=== PATIENT | female | born 1985 | race American Indian/Alaskan Native ===

== ENCOUNTER 2019-11-28 13:13 | Emergency (ER) | payer MEDICAID ==
[2019-11-28] MEDS ORDERED: ASPIRIN 325 MG TAB PO ONE (14:23)
--- NOTE | 2019-11-28 14:25 | Event Note ---
ED Screening Note Date of service: 11/28/19 Time: 14:21 ED Screening Note: This is a 34-year-old female with no prior medical history presents the ED complaining of chest pain x2 hours ago She describes pain as tight in nature and localized to the medial. She describes a 10 on a 10 pain, ccrying in triage and holding chest Patient also has a history of anxiety disorder. mild ttp of chest This initial assessment/diagnostic orders/clinical plan/treatment(s) is/are subject to change based on patients health status, clinical progression and re- assessment by fellow clinical providers in the ED. Further treatment and workup at subsequent clinical providers discretion. Patient/guardian urged not to elope from the ED as their condition may be serious if not clinically assessed and managed. Initial orders include: Labs, chest x-ray, EKG
[2019-11-28 15:14] LABS: Basophils # (Auto) 0.1 K/mm3 (0.0-0.1); Basophils % (Auto) 0.6 % (0.0-1.8); Eosinophils % (Auto) 0.1 % (0.0-4.3); Hematocrit 43.4 % (30.3-42.9); Lymphocytes # (Auto) 3.3 K/mm3 (1.2-5.4); Lymphocytes % (Auto) 26.5 % (13.4-35.0); Mean Corpuscular HGB Conc 32 % (30-34); Mean Corpuscular Volume 85 fl (79-97); Monocytes # (Auto) 1.1 K/mm3 (0.0-0.8); Monocytes % (Auto) 8.8 % (0.0-7.3); Platelet Count 283 K/mm3 (140-440); Red Blood Count 5.09 M/mm3 (3.65-5.03); Red Cell Distribution Width 14.8 % (13.2-15.2)
[2019-11-28 15:25] LABS: BUN/Creatinine Ratio 10; Blood Urea Nitrogen 8 mg/dL (7-17); Hemolysis Index 13
--- NOTE | 2019-11-28 15:39 | XRay Report ---
CHEST 1 VIEW INDICATION: Chest Pain. COMPARISON: None FINDINGS: Support devices: None. Heart: Within normal limits. Lungs/Pleura: No acute air space or interstitial disease. Additional findings: None. IMPRESSION: No acute findings. Signer Name: Hieu Hanna Jr, MD Signed: 11/28/2019 3:35 PM Workstation Name: [id number]
[2019-11-28] MEDS ORDERED: KETOROLAC 60 MG/2 ML INJ IM ONE (15:44)
[2019-11-28] MEDS ORDERED: SODIUM CHLORIDE 0.9% 1000 ML 1,000 ML IV ONE ×2 (15:50→17:20)
[2019-11-28] MEDS ORDERED: POTASSIUM CHLORIDE ER 10 MEQ TAB PO ONE (15:50)
[2019-11-28] MEDS ORDERED: POTASSIUM CHLORIDE 10 MEQ 10 MEQ/100 ML BAG IV ONE (15:52)
[2019-11-28] MEDS ORDERED: POTASSIUM CHLORIDE ER 20 MEQ TAB PO ONE (15:52)
[2019-11-28] MEDS ORDERED: KETOROLAC 30 MG/1 ML INJ IV ONE (16:00)
[2019-11-28] MEDS ORDERED: KETOROLAC 30 MG/1 ML INJ ONE (16:03)
--- NOTE | 2019-11-28 17:41 | Emergency Department Report ---
ED Chest Pain HPI - General Chief Complaint: Chest Pain Stated Complaint: CHEST PAIN Time Seen by Provider: 11/28/19 15:25 Source: patient Mode of arrival: Ambulatory Limitations: No Limitations - History of Present Illness Initial Comments: This is a 34-year-old male nontoxic, well nourished in appearance, no acute signs of distress presents to the ED with c/o of midsternum chest pain. Patient denies any radiation of pain. Patient describes pain as aching and sharp intermittently. Aggravated with palpation and movement. Patient denies any upper respiratory symptoms. Patient denies any shortness of breath, hemoptysis, fever, chills, nausea, vomiting, headache, stiff neck, numbness, tingling, abdominal pain. Patient denies pleuritic chest pain. Patient denies any recent travels or long car rides. Patient denies any recent surgeries or any sick contacts. Patient denies any drug allergies. Denies any PMH. MD Complaint: chest pain -: This afternoon Pain Location: substernal Pain Radiation: none Severity: mild Severity scale (0 -10): 3 Quality: aching, sharp Consistency: intermittent Improves With: rest Worsens With: palpation, movement re: denies: nausea, vomting, diaphoresis, dyspnea, sense of impending doom Other Symptoms: denies: cough, fever, syncope, rash, acid taste in mouth, leg swelling, palpitations, burping Treatments Prior to Arrival: none Aspirin use within the Past 7 Days: (0) No - Related Data On Oral Contraceptives: No Previous Rx's Medication Instructions Recorded Last Taken Type Naproxen 500 mg PO Q8H PRN #12 tablet 11/28/19 Unknown Rx Allergies Allergy/AdvReac Type Severity Reaction Status Date / Time No Known Allergies Allergy Verified 11/28/19 14:23 Heart Score - HEART Score History: Slightly suspicious EKG: Normal Age: < 45 Risk factors: No known risk factors Troponin: < normal limit HEART Score: 0 ED Review of Systems ROS: Stated complaint: CHEST PAIN Other details as noted in HPI Constitutional: denies: chills, fever Eyes: denies: eye pain, eye discharge, vision change ENT: denies: ear pain, throat pain Respiratory: denies: cough, shortness of breath, wheezing Cardiovascular: chest pain. denies: palpitations Endocrine: no symptoms reported Gastrointestinal: denies: abdominal pain, nausea, diarrhea Genitourinary: denies: urgency, dysuria, discharge Musculoskeletal: denies: back pain, joint swelling, arthralgia Skin: denies: rash, lesions Neurological: denies: headache, weakness, paresthesias Psychiatric: denies: anxiety, depression Hematological/Lymphatic: denies: easy bleeding, easy bruising ED Past Medical Hx - Past Medical History Previous Medical History?: Yes Additional medical history: ovarian cyst. anxiety attacks - Surgical History Past Surgical History?: Yes Additional Surgical History: C section - Social History Smoking Status: Current Some Day Smoker Substance Use Type: Marijuana - Medications Home Medications: Home Medications Medication Instructions Recorded Confirmed Last Taken Type Naproxen 500 mg PO Q8H PRN #12 tablet 11/28/19 Unknown Rx ED Physical Exam - General Limitations: No Limitations General appearance: alert, in no apparent distress - Head Head exam: Present: atraumatic, normocephalic - Eye Eye exam: Present: normal appearance - Neck Neck exam: Present: normal inspection, full ROM. Absent: tenderness, meningismus, lymphadenopathy - Respiratory Respiratory exam: Present: normal lung sounds bilaterally, chest wall tenderness (Costochondritis). Absent: respiratory distress, wheezes, rales, rhonchi, stridor, accessory muscle use, decreased breath sounds, prolonged expiratory - Cardiovascular Cardiovascular Exam: Present: regular rate, normal rhythm, normal heart sounds. Absent: bradycardia, tachycardia, irregular rhythm, systolic murmur, diastolic murmur, rubs, gallop - GI/Abdominal GI/Abdominal exam: Present: soft, normal bowel sounds. Absent: distended, tenderness, guarding, rebound, rigid, diminished bowel sounds - Extremities Exam Extremities exam: Present: normal inspection, full ROM - Back Exam Back exam: Present: normal inspection, full ROM. Absent: tenderness, CVA tenderness (R), CVA tenderness (L), muscle spasm, paraspinal tenderness, vertebral tenderness, rash noted - Neurological Exam Neurological exam: Present: alert, oriented X3, normal gait - Psychiatric Psychiatric exam: Present: normal affect, normal mood - Skin Skin exam: Present: warm, dry, intact, normal color. Absent: rash ED Course Vital Signs 11/28/19 11/28/19 13:45 16:44 Temperature 98.9 F Pulse Rate 74 Respiratory 18 20 Rate Blood Pressure 113/87 O2 Sat by Pulse 97 Oximetry - Reevaluation(s) Reevaluation #1: 11/28/19 17:41 Patient is speaking in full sentences with no signs of distress noted. Reevaluation #2: 11/28/19 17:45 Patient has nausea after K+. Will order Zofran and reexamine with PO challenge. RAJINDER score - Rajinder Score Age > 65: (0) No Aspirin use within the Past 7 Days: (0) No 3 or more CAD Risk Factors: (0) No 2 or more Angina events in past 24 hrs: (0) No Known CAD with more than 50% Stenosis: (0) No Elevated Cardiac Markers: (0) No ST Deviation Greater than 0.5mm: (0) No RAJINDER Score: 0 ED Medical Decision Making - Lab Data Result diagrams: 11/28/19 14:45 11/28/19 14:45 Lab Results 11/28/19 11/28/19 11/28/19 Range/Units 14:45 14:45 14:45 WBC 12.3 H (4.5-11.0) K/mm3 RBC 5.09 H (3.65-5.03) M/mm3 Hgb 14.0 (10.1-14.3) gm/dl Hct 43.4 H (30.3-42.9) % MCV 85 (79-97) fl MCH 28 (28-32) pg MCHC 32 (30-34) % RDW 14.8 (13.2-15.2) % Plt Count 283 (140-440) K/mm3 Lymph % (Auto) 26.5 (13.4-35.0) % [place] % (Auto) 8.8 H (0.0-7.3) % Eos % (Auto) 0.1 (0.0-4.3) % Baso % (Auto) 0.6 (0.0-1.8) % Lymph # 3.3 (1.2-5.4) K/mm3 [place] # 1.1 H (0.0-0.8) K/mm3 Eos # 0.0 (0.0-0.4) K/mm3 Baso # 0.1 (0.0-0.1) K/mm3 Seg Neutrophils % 64.0 (40.0-70.0) % Seg Neutrophils # 7.9 H (1.8-7.7) K/mm3 Sodium 138 (137-145) mmol/L Potassium 3.2 L (3.6-5.0) mmol/L Chloride 95.7 L (98-107) mmol/L Carbon Dioxide 25 (22-30) mmol/L Anion Gap 21 mmol/L BUN 8 (7-17) mg/dL Creatinine 0.8 (0.7-1.2) mg/dL Estimated GFR > 60 ml/min BUN/Creatinine Ratio 10 % Glucose 120 H (65-100) mg/dL Calcium 10.0 (8.4-10.2) mg/dL Total Creatine Kinase 86 (30-135) units/L Troponin T < 0.010 (0.00-0.029) ng/mL HCG, Qual Negative (Negative) 11/28/19 Range/Units 17:27 WBC (4.5-11.0) K/mm3 RBC (3.65-5.03) M/mm3 Hgb (10.1-14.3) gm/dl Hct (30.3-42.9) % MCV (79-97) fl MCH (28-32) pg MCHC (30-34) % RDW (13.2-15.2) % Plt Count (140-440) K/mm3 Lymph % (Auto) (13.4-35.0) % [place] % (Auto) (0.0-7.3) % Eos % (Auto) (0.0-4.3) % Baso % (Auto) (0.0-1.8) % Lymph # (1.2-5.4) K/mm3 [place] # (0.0-0.8) K/mm3 Eos # (0.0-0.4) K/mm3 Baso # (0.0-0.1) K/mm3 Seg Neutrophils % (40.0-70.0) % Seg Neutrophils # (1.8-7.7) K/mm3 Sodium (137-145) mmol/L Potassium (3.6-5.0) mmol/L Chloride (98-107) mmol/L Carbon Dioxide (22-30) mmol/L Anion Gap mmol/L BUN (7-17) mg/dL Creatinine (0.7-1.2) mg/dL Estimated GFR ml/min BUN/Creatinine Ratio % Glucose (65-100) mg/dL Calcium (8.4-10.2) mg/dL Total Creatine Kinase (30-135) units/L Troponin T < 0.010 (0.00-0.029) ng/mL HCG, Qual (Negative) - EKG Data 11/28/19 17:07 1st EKG taken at 14:04 PM Normal sinus rhythm at [address] or T wave abnormalities. Reviewed and signed by . 11/28/19 18:29 2nd EKG taken at 18:23 PM Normal sinus rhythm at 64. No significant ST or T wave abnormalities. Reviewed and signed by Dr. Peace. - Radiology Data Referring Physician: SHAY BRODERICK Patient Name: ROBERT HENDERSON Date of : 1985 Sex: Female Report Date: 2019-11-28 Report Status: Finalized [address] [address] XR ay Report Signed Patient: ROBERT HENDERSON MR#: [id number] : 1985 Acct:[id number] Age/Sex: 34 / F ADM Date: 11/28/19 Loc: ED Attending Dr: Ordering Physician: LATONIA MCKEON Date of Service: 11/28/19 Procedure(s): XR chest 1V ap Accession Number(s): [id number] cc: LATONIA MCKEON Fluoro Time In Minutes: CHEST 1 VIEW INDICATION: Chest Pain. COMPARISON: None FINDINGS: Support devices: None. Heart: Within normal limits. Lungs/Pleura: No acute air space or interstitial disease. Additional findings: None. IMPRESSION: No acute findings. Signer Name: Hieu Hanna Jr, MD Signed: 11/28/2019 3:35 PM Workstation Name: [id number] Transcribed By: TTR Dictated By: HIEU Soliman JR, MD Electronically Authenticated By: HIEU HANNA JR, MD Signed Date/Time: 11/28/19 1535 DD/ 1534 TD/TT: - Medical Decision Making This is a 34-year-old male that presents with costochondritis. Patient is stable and was examined by me. RAJINDER and HEART score 0 pints. PERC criteria for DVT/SVT/PE 0 points. EKG normal sinus rhythm with no significant changes in ST. Chest xray dictated by the radiologist. PAtient is notified of the Xray report with no questions noted. Labs within normal limits. Negative troponin x2. Patient received Toradol 60 mg IM, Zofran, and Pepcid in the ED which she stated his symptoms are improving subsided. PO challange obtained and patient tolerated well. Potassium corrected with potassium IV and p.o. I will discharge patient with Naproxen. Patient was instructed to Follow-up with a primary care/event specialist product demonstrator doctor in 2 days or if symptoms worsen and continue return to emergency room as soon as possible. At time of discharge, the patient does not seem toxic or ill in appearance. No acute signs of distress noted. Patient agrees to discharge treatment plan of care. No further questions noted by the patient. Critical care attestation.: If time is entered above; I have spent that time in minutes in the direct care of this critically ill patient, excluding procedure time. ED Disposition Clinical Impression: Atypical chest pain, Costochondritis Disposition: DC-01 TO HOME OR SELFCARE Is pt being admited?: No Does the pt Need Aspirin: No Condition: Stable Instructions: Chest Pain (ED), Costochondritis (ED) Additional Instructions: Follow-up with a primary care/event specialist product demonstrator doctor in 2 days or if symptoms worsen and continue return to emergency room as soon as possible. Prescriptions: Naproxen 500 mg PO Q8H PRN #12 tablet PRN Reason: Pain , Severe (7-10) Referrals: PRIMARY MD GERARDO [Primary Care Provider] - 3-5 Days STEFANY HSIEH MD [Staff Physician] - 3-5 Days BLANCA AGRAWAL MD [Staff Physician] - 11/29/19 Forms: Work/School Release Form(ED)
[2019-11-28] MEDS ORDERED: ONDANSETRON 4 MG/2 ML INJ IV ONE (17:44)
[2019-11-28] MEDS ORDERED: FAMOTIDINE 20 MG/2 ML INJ IV ONE (17:44)
[2019-11-28 19:08] VITALS: BP 133/82
== END 2019-11-28 19:01 | disposition home or self-care (01) ==
LOC: ED 13:13
DX: M94.0 Chondrocostal junction syndrome [Tietze] (principal); F17.200 Nicotine dependence, unspecified, uncomplicated; F12.10 Cannabis abuse, uncomplicated; Z98.890 Other specified postprocedural states
CPT/HCPCS: 36415; 71045; 80048; 82550; 84484; 84703; 85025; 93005; 96374; 96375; 99284; J1885; J2405; J3480; J7030